=== PATIENT | male | born 1985 | race Caucasian/White ===

== ENCOUNTER 2016-10-18 18:01 | Emergency (ER) | payer SELFPAY ==
[~2016-10-18] VITALS: Ht 172.7 cm; Wt 82.0 kg
[2016-10-18 18:03] VITALS: BP 160/99; PULSE 129; RESP 24; O2SAT 96
== END 2016-10-18 20:30 | disposition left against medical advice (07) ==
LOC: NED 18:01
DX: F99 Mental disorder, not otherwise specified (principal)

== ENCOUNTER 2016-11-11 16:00 | Emergency (ER) | payer OTHER ==
[2016-11-11 16:14] VITALS: BP 132/86; PULSE 115; RESP 18; TEMP 97.6; O2SAT 97
[2016-11-11] MEDS ORDERED: diphenhydrAMINE HCL 50 MG/ML VIAL ONE (16:19)
[2016-11-11] MEDS ORDERED: LORazepam 2 MG/ML VIAL ONE (16:19)
[2016-11-11] MEDS ORDERED: HALOPERIDOL LACTATE 5 MG/ML AMP ONE (16:19)
[2016-11-11] MEDS ORDERED: diphenhydrAMINE HCL 50 MG/ML VIAL IM ONE ×2 (16:30→19:45)
[2016-11-11] MEDS ORDERED: LORazepam 2 MG/ML VIAL IM ONE ×2 (16:30→19:45)
[2016-11-11] MEDS ORDERED: HALOPERIDOL LACTATE 5 MG/ML AMP IM ONE ×2 (16:30→19:45)
--- NOTE | 2016-11-11 17:40 | PD ---
HPI Chief Complaint: Psychiatric Symptoms Time Seen by Provider: 16:18 Travel History International Travel<30 days: No Contact w/Intl Traveler<30days: No Traveled to known affect area: No History of Present Illness HPI 31-year-old male came to the emergency room with history of suicidal ideation and combative and bizarre behavior. He was brought in by the police as a Guardado act. Coincidentally he was seen by me as a trauma alert couple hours ago. Patient was up on the bed trying to paint the bedroom with his when he fell and had head injury. There was IV drug abuse history as well. Patient was seen by the trauma surgeon and cleared by the trauma surgeon. Multiple CAT scans were done. After patient came back from the CAT scan back to the emergency room he was fully awake and wanted to leave. He didn't want his head laceration to be sutured. As per the [place] he ended up going to the [facility] emergency room where it's unclear whether he got any stitches but his mother called PD to let them know that she is concerned that her son has been making suicidal threats. At which point they tried to Guardado act him but he became extremely violent at the scene and started to having his head on the police car which caused a lot of bleeding at the scene. He was brought in extremely combative screaming and spitting at everybody. [facility] Past Medical History Narrative Medical List of his past medical, surgical, social and family history was reviewed from the nursing note. Medical History: Unable to Obtain Arthritis: No Asthma: No Autoimmune Disease: No Blood Disorders: No Bipolar Disorder: Yes Anxiety: No Depression: No Heart Rhythm Problems: No Cancer: No Cardiovascular Problems: No High Cholesterol: No Chemotherapy: No Chest Pain: No Congestive Heart Failure: No COPD: No Cerebrovascular Accident: No Diabetes: No Diminished Hearing: No Endocrine: No Gastrointestinal Disorders: No GERD: Yes Genitourinary: No Headaches: No Hepatitis: Yes (C) Hiatal Hernia: No Hypertension: No Immune Disorder: No Implanted Vascular Access Dvce: No Kidney Stones: No Musculoskeletal: No Neurologic: No Psychiatric: No Reproductive: No Respiratory: No Immunizations Current: Yes Migraines: No Radiation Therapy: No Renal Failure: No Schizophrenia: Yes (schizoaffective disorder) Seizures: Yes (cocoaine induced x1 5yrs ago ) Sickle Cell Disease: No Sleep Apnea: No Thyroid Disease: No Ulcer: No PNEUMOCCOCAL Vaccine (Year): 1 Past Surgical History Surgical History: Unable to Obtain Abdominal Surgery: No AICD: No Arteriovenous Shunt: No Cardiac Surgery: No Ear Surgery: No Endocrine Surgery: Yes Eye Surgery: Yes (rt eye plastic surgery) Genitourinary Surgery: No Gynecologic Surgery: No Insulin Pump: No Joint Replacement: No Neurologic Surgery: No Oral Surgery: No Pacemaker: No Thoracic Surgery: No Other Surgery: Yes (PLASTIC) Social History Alcohol Use: No Tobacco Use: Yes (1-2ppd) Substance Use: Yes (METH) Allergies-Medications (Allergen,Severity, Reaction): Coded Allergies: Vancomycin (Verified Allergy, Mild, Rash, 10/18/16) itching Penicillin (Verified Allergy, Unknown, 10/18/16) Comments List of his allergies reviewed from the nursing note. Reported Meds & Prescriptions Reported Meds & Active Scripts Active Active Prescriptions or Reported Medications Unobtainable Narrative Medication List of his home medications reviewed from the nursing note. Review of Systems Except as stated in HPI: all other systems reviewed are Neg Physical Exam Narrative GENERAL: Awake, combative, dried and oozing blood all over his face from the head wound, for pointed to strain SKIN: Focused skin assessment warm/dry. HEAD: Atraumatic. Normocephalic. EYES: Pupils equal and round. No scleral icterus. No injection or drainage. ENT: No nasal bleeding or discharge. Mucous membranes pink and moist. NECK: Trachea midline. No JVD. CARDIOVASCULAR: Regular rate and rhythm. No murmur appreciated. RESPIRATORY: No accessory muscle use. Clear to auscultation. Breath sounds equal bilaterally. GASTROINTESTINAL: Abdomen soft, non-tender, nondistended. Hepatic and splenic margins not palpable. MUSCULOSKELETAL: No obvious deformities. No clubbing. No cyanosis. No edema. NEUROLOGICAL: Awake and alert. No obvious cranial nerve deficits. Motor grossly within normal limits. Normal speech. PSYCHIATRIC: Appropriate mood and affect; insight and judgment normal. Data Data Last Documented VS Vital Signs Date Time Temp Pulse Resp B/P Pulse Ox O2 Delivery O2 Flow Rate FiO2 11/12/16 10:08 96 16 114/57 97 Room Air 11/11/16 23:02 97.8 Orders Psych Screen (11/11/16 16:18) Haloperidol Inj (Haldol Inj) (11/11/16 16:30) Lorazepam Inj (Ativan Inj) (11/11/16 16:30) Drug Screen, Random Urine (11/11/16 16:18) Alcohol (Ethanol) (11/11/16 16:18) Diphenhydramine Inj (Benadryl Inj) (11/11/16 16:30) Diphenhydramine Inj (Benadryl Inj) (11/11/16 16:19) Haloperidol Inj (Haldol Inj) (11/11/16 16:19) Lorazepam Inj (Ativan Inj) (11/11/16 16:19) Restraints Violent (11/11/16 17:57) Ct Brain W/O Iv Contrast(Rout) (11/11/16 ) Haloperidol Inj (Haldol Inj) (11/11/16 19:45) Lorazepam Inj (Ativan Inj) (11/11/16 19:45) Diphenhydramine Inj (Benadryl Inj) (11/11/16 19:45) Diet Regular Basic (11/12/16 Breakfast) Labs Laboratory Tests Test 11/11/16 20:30 Urine Opiates Screen NEG Urine Barbiturates Screen NEG Urine Amphetamines Screen POS Urine Benzodiazepines Screen POS Urine Cocaine Screen POS Urine Cannabinoids Screen POS MDM Medical Decision Making Medical Screen Exam Complete: Yes Emergency Medical Condition: Yes Medical Record Reviewed: Yes Differential Diagnosis Head injury, substance abuse, alcohol intoxication, psychotic, substance- induced psychosis Narrative Course 6:06 PM patient had to be restrained given his violent attitude and he had to be put on a spit mask since he was spitting bloody saliva at everybody. I needed to chemically restrain him with IM Haldol plus Ativan plus Benadryl. Awaiting for the blood test. Awaiting for the CT scan to be done and resulted. He was already updated on tetanus and had received an Ancef shot last time when he came in as a trauma alert few hours ago. Once he is medically cleared he will be waiting to get psych screen. 7:[address] scan report. Case was signed over to the oncoming ER physician. The PA will repair the facial lacerations. Please refer to her procedure notes. Procedures EKG Prior to Arrival: No Scripts Unable to Obtain Active Prescriptions or Reported Meds Antione Velazquez MD Nov 11, 2016 17:40
[2016-11-11 18:20] VITALS: BP_SYST 106; BP_SYST 131; BP_DIAS 57; BP_DIAS 59; PULSE 72; PULSE 76; RESP 18; O2SAT 100
--- NOTE | 2016-11-11 19:26 | PD ---
Data Data Last Documented VS Vital Signs Date Time Temp Pulse Resp B/P Pulse Ox O2 Delivery O2 Flow Rate FiO2 11/11/16 22:00 93 16 119/64 97 Room Air 11/11/16 16:14 97.6 Orders Psych Screen (11/11/16 16:18) Haloperidol Inj (Haldol Inj) (11/11/16 16:30) Lorazepam Inj (Ativan Inj) (11/11/16 16:30) Drug Screen, Random Urine (11/11/16 16:18) Alcohol (Ethanol) (11/11/16 16:18) Diphenhydramine Inj (Benadryl Inj) (11/11/16 16:30) Diphenhydramine Inj (Benadryl Inj) (11/11/16 16:19) Haloperidol Inj (Haldol Inj) (11/11/16 16:19) Lorazepam Inj (Ativan Inj) (11/11/16 16:19) Restraints Violent (11/11/16 17:57) Ct Brain W/O Iv Contrast(Rout) (11/11/16 ) Haloperidol Inj (Haldol Inj) (11/11/16 19:45) Lorazepam Inj (Ativan Inj) (11/11/16 19:45) Diphenhydramine Inj (Benadryl Inj) (11/11/16 19:45) Labs Laboratory Tests Test 11/11/16 20:30 Urine Opiates Screen NEG Urine Barbiturates Screen NEG Urine Amphetamines Screen POS Urine Benzodiazepines Screen POS Urine Cocaine Screen POS Urine Cannabinoids Screen POS MDM Medical Record Reviewed: Yes Supervised Visit with PETRA: No Narrative Course During the course of the patients emergency department visit, the patients history, examination, and differential diagnosis were reviewed with the patient. The patient had IV access obtained and blood work sent for analysis. The patient's case was checked out to me by Dr. Velazquez. Please see her complete history and physical. The patient was initially provided Ativan 2 mg IM, Benadryl 50 mg IM, and Haldol 5 mg IM. This was ordered by Dr. Velazquez. This was administered a few hours ago. The patient began to become more awake and alert and agitated again requiring a repeat dose of sedation to accomplish his wound repair and CT scan of the brain. The patient was given Haldol 2.5 mg IM, Benadryl 25 mg IM, Ativan 1 mg IM. The patients laboratory studies were reviewed and remarkable for a urine drug screen that is positive for amphetamines, benzodiazepines, cocaine, cannabinoids. Radiology studies were reviewed and remarkable for a CT scan of the brain that shows no acute intracranial abnormality. The patient has mild right soft tissue scalp swelling. The patient has been medically cleared for evaluation by the psychiatric screener under a Guardado act. Diagnosis Primary Impression: Agitation requiring sedation protocol Scripts Unable to Obtain Active Prescriptions or Reported Meds Tran Dorman MD Nov 11, 2016 19:26
--- NOTE | 2016-11-11 21:08 | PD ---
Physical Exam Time Seen by Provider: 21:05 Narrative I was asked to perform laceration repair by Dr. Velazquez. For further details regarding the patient's visit please see the physician's documentation. Data Data Last Documented VS Vital Signs Date Time Temp Pulse Resp B/P Pulse Ox O2 Delivery O2 Flow Rate FiO2 11/11/16 18:20 76 18 106/57 100 Room Air 11/11/16 16:14 97.6 Orders Psych Screen (11/11/16 16:18) Haloperidol Inj (Haldol Inj) (11/11/16 16:30) Lorazepam Inj (Ativan Inj) (11/11/16 16:30) Drug Screen, Random Urine (11/11/16 16:18) Alcohol (Ethanol) (11/11/16 16:18) Diphenhydramine Inj (Benadryl Inj) (11/11/16 16:30) Diphenhydramine Inj (Benadryl Inj) (11/11/16 16:19) Haloperidol Inj (Haldol Inj) (11/11/16 16:19) Lorazepam Inj (Ativan Inj) (11/11/16 16:19) Restraints Violent (11/11/16 17:57) Ct Brain W/O Iv Contrast(Rout) (11/11/16 ) Haloperidol Inj (Haldol Inj) (11/11/16 19:45) Lorazepam Inj (Ativan Inj) (11/11/16 19:45) Diphenhydramine Inj (Benadryl Inj) (11/11/16 19:45) MDM Supervised Visit with PETRA: No Procedures Procedure Narrative LACERATION LOCATION: Right scalp LENGTH: 2.5 cm NUMBER OF STITCHES/SHELTON: 7 [place] REPAIR: The area of the laceration was prepped with Betadine and sterilely draped. The laceration was infiltrated with lidocaine with epinephrine. The wound was copiously irrigated and explored without evidence of foreign body, tendon injury or neurovascular injury. The wound was closed using shelton. This was a single layer repair. A sterile dressing was applied. The patient was advised to keep the dressing clean and dry. Patient tolerated the procedure well. LACERATION LOCATION: Right upper scalp LENGTH: 2 cm NUMBER OF STITCHES/SHELTON: 4 [place] REPAIR: The area of the laceration was prepped with Betadine and sterilely draped. The laceration was infiltrated with lidocaine with epinephrine. The wound was copiously irrigated and explored without evidence of foreign body, tendon injury or neurovascular injury. The wound was closed using shelton. This was a single layer repair. A sterile dressing was applied. The patient was advised to keep the dressing clean and dry. Patient tolerated the procedure well. LACERATION LOCATION: Right upper scalp LENGTH: 1.5 cm NUMBER OF STITCHES/SHELTON: 3 [place] REPAIR: The area of the laceration was prepped with Betadine and sterilely draped. The laceration was infiltrated with lidocaine with epinephrine. The wound was copiously irrigated and explored without evidence of foreign body, tendon injury or neurovascular injury. The wound was closed using shelton. This was a single layer repair. A sterile dressing was applied. The patient was advised to keep the dressing clean and dry. Patient tolerated the procedure well. Scripts Unable to Obtain Active Prescriptions or Reported Meds Laureen Iraheta Nov 11, 2016 21:08
[2016-11-11 21:34] LABS: AMPHETAMINE, URINE POS (NEG); BARBITURATES, URINE NEG (NEG); COCAINE, URINE POS (NEG)
--- NOTE | 2016-11-11 21:34 | RADRPT ---
EXAM DATE/TIME: 11/11/2016 20:28 [place] COMPARISON: No previous studies available for comparison. INDICATIONS : Altered mental status. Hit head. RADIATION DOSE: 56.35 CTDIvol (mGy) MEDICAL HISTORY : Seizures. Gastroesophageal reflux disease. Hepatitis C. SURGICAL HISTORY : None. ENCOUNTER: Initial ACUITY: 1 day PAIN SCALE: 4/10 LOCATION: cranial TECHNIQUE: Multiple contiguous axial images were obtained of the head. Using automated exposure control and adj ustment of the mA and/or kV according to patient size, radiation dose was kept as low as reasonably a chievable to obtain optimal diagnostic quality images. FINDINGS: CEREBRUM: The ventricles are normal. No evidence of midline shift, mass lesion, hemorrhage or acute infarction . No extra-axial fluid collections are seen. POSTERIOR FOSSA: The cerebellum and brainstem are intact. The 4th ventricle is midline. The cerebellopontine angle i s unremarkable. EXTRACRANIAL: . Is mild right scalp soft tissue swelling. A 12 mm right maxillary sinus polyp versus mucous retenti on cyst is present SKULL: The calvaria is intact. No evidence of skull fracture. CONCLUSION: 1. No acute intracranial abnormality is identified. 2. Mild right scalp soft tissue swelling. Cristofer Hannah MD on November 11, 2016 at 21:28 Board Certified Radiologist. This report was verified electronically.
[2016-11-11 22:00] VITALS: BP 119/64; PULSE 93; RESP 16; O2SAT 97
[2016-11-11 23:02] VITALS: BP 133/69; PULSE 78; RESP 18; TEMP 97.8; O2SAT 98
[2016-11-12 01:50] VITALS: BP 107/68; PULSE 80; RESP 16
[2016-11-12 06:05] VITALS: BP 114/56; PULSE 80; RESP 18
[2016-11-12 10:08] VITALS: BP 114/57; PULSE 96; RESP 16; O2SAT 97
--- NOTE | 2016-11-12 10:49 | PD ---
History of Present Illness Chief Complaint: Psychiatric Symptoms Time Seen by Provider: 10:40 Travel History International Travel<30 Days: No Contact w/Intl Traveler<30days: No Known affected area: No Legal Status Legal Status: Guardado Act Guardado Act Signed By: History of Present Illness: This is a 31-year-old male seen earlier in the emergency department with a head injury, who left AMA. Brought back in by police and given sutures. At the time he returned, he also made claims of suicidal ideation, that he wanted the police to kill him and banged his head against the patrol vehicle reopening his wounds. When interviewed by this physician, the patient is seeking opiates. When informed that psychiatry does not prescribe opiate pain medicines, the patient asked for Subutex. When informed psychiatry does not provide Subutex, the patient stated he wanted to leave. He did not claim to be suicidal, homicidal and demonstrated no evidence of psychotic thinking. He does want to get his opiate medications and therefore is requesting his Guardado act be lifted. This physician feels strongly the patient is drug seeking and manipulative. Despite his recent dangerous behavior, it is not appropriate to enable the patient to receive opiates in this manner. It is also not appropriate to admit the patient to psychiatry. In fact, this physician feels it is counter therapeutic to give into this type of manipulation. Therefore, despite the possibility of the patient acting out once again, including self injury, this physician feels he should be discharged. PFSH Past Medical History Medical History: Unable to Obtain Arthritis: No Asthma: No Autoimmune Disease: No Blood Disorders: No Bipolar Disorder: Yes Anxiety: No Depression: No Heart Rhythm Problems: No Cancer: No Cardiovascular Problems: No High Cholesterol: No Chemotherapy: No Chest Pain: No Congestive Heart Failure: No COPD: No Cerebrovascular Accident: No Diabetes: No Diminished Hearing: No Endocrine: No Gastrointestinal Disorders: No GERD: Yes Genitourinary: No Headaches: No Hepatitis: Yes (C) Hiatal Hernia: No Hypertension: No Immune Disorder: No Implanted Vascular Access Dvce: No Kidney Stones: No Musculoskeletal: No Neurologic: No Psychiatric: No Reproductive: No Respiratory: No Immunizations Current: Yes Migraines: No Radiation Therapy: No Renal Failure: No Schizophrenia: Yes (schizoaffective disorder) Seizures: Yes (cocoaine induced x1 5yrs ago ) Sickle Cell Disease: No Sleep Apnea: No Thyroid Disease: No Ulcer: No PNEUMOCCOCAL Vaccine (Year): 1 Past Surgical History Surgical History: Unable to Obtain Abdominal Surgery: No AICD: No Arteriovenous Shunt: No Cardiac Surgery: No Ear Surgery: No Endocrine Surgery: Yes Eye Surgery: Yes (rt eye plastic surgery) Genitourinary Surgery: No Gynecologic Surgery: No Insulin Pump: No Joint Replacement: No Neurologic Surgery: No Oral Surgery: No Pacemaker: No Thoracic Surgery: No Other Surgery: Yes (PLASTIC) Psychiatric History Psychiatric History Hx Psychiatric Treatment: Patient stated that he has been diagnosed with bipolar d/o, schizoaffective d/o and social phobia. Reports previous inpatient and outpatient psychiatric treatment treatment in [place]. He is currently not taking any psychaitric medication. This physician this physician finds no significant objective evidence of bipolar disorder, schizoaffective disorder or social phobia at this time. History of Inpatient Treatment: Yes Guns or firearms in home: No Social History Hx Alcohol Use: No Hx Tobacco Use: Yes (1-2ppd) Hx Substance Use: Yes (METH) Substance Use Type: Alcohol, Marijuana, Nicotine/Cigarettes, Prescription Medications, Benzos (Valium,Xanax), Cocaine, Synth Opiates-Pain Pills, Cough- Cold Pills Hx of Substance Use Treatment: Yes Allergies-Medications (Allergen,Severity, Reaction): Coded Allergies: Vancomycin (Verified Allergy, Mild, Rash, 10/18/16) itching Penicillin (Verified Allergy, Unknown, 10/18/16) Reported Meds & Prescriptions Reported Meds & Active Scripts Active Active Prescriptions or Reported Medications Unobtainable Review of Systems Except as stated in HPI: all other systems reviewed are Neg Neurologic: COMPLAINS OF: Headache Exam Alert: Yes [place]: Person, Place, Date, Situation Mood: Oppositional Affect: Restricted Speech: Clear Eye Contact: Normal Memory Intact: Immediate, Recent, Remote Insight/Judgement Adequate MDM Medical Decision Making Medical Record Reviewed: Yes Assessment/Plan Despite the patient's recent self-inflicted injury to his head, this physician does not feel his behavior is the result of a major mental illness but rather the result of a personality style and drug-seeking behavior. This physician feels it is counter therapeutic to enable this type of behavior, by providing the patient with opiates or a psychiatric hospitalization. Therefore, despite the risks of the patient acting out, his Guardado act is being lifted and he is being discharged. Orders Psych Screen (11/11/16 16:18) Haloperidol Inj (Haldol Inj) (11/11/16 16:30) Lorazepam Inj (Ativan Inj) (11/11/16 16:30) Drug Screen, Random Urine (11/11/16 16:18) Alcohol (Ethanol) (11/11/16 16:18) Diphenhydramine Inj (Benadryl Inj) (11/11/16 16:30) Diphenhydramine Inj (Benadryl Inj) (11/11/16 16:19) Haloperidol Inj (Haldol Inj) (11/11/16 16:19) Lorazepam Inj (Ativan Inj) (11/11/16 16:19) Restraints Violent (11/11/16 17:57) Ct Brain W/O Iv Contrast(Rout) (11/11/16 ) Haloperidol Inj (Haldol Inj) (11/11/16 19:45) Lorazepam Inj (Ativan Inj) (11/11/16 19:45) Diphenhydramine Inj (Benadryl Inj) (11/11/16 19:45) Diet Regular Basic (11/12/16 Breakfast) Results Vital Signs Date Time Temp Pulse Resp B/P Pulse Ox O2 Delivery O2 Flow Rate FiO2 11/12/16 10:08 96 16 114/57 97 Room Air 11/12/16 06:05 80 18 114/56 11/12/16 01:50 80 16 107/68 11/11/16 23:02 97.8 78 18 133/69 98 Room Air 11/11/16 22:00 93 16 119/64 97 Room Air 11/11/16 18:20 76 18 106/57 100 Room Air 11/11/16 16:14 97.6 115 18 132/86 97 Laboratory Tests Test 11/11/16 20:30 Urine Opiates Screen NEG Urine Barbiturates Screen NEG Urine Amphetamines Screen POS Urine Benzodiazepines Screen POS Urine Cocaine Screen POS Urine Cannabinoids Screen POS Diagnosis Primary Impression: Adjustment disorder with mixed disturbance of emotions and conduct Additional Impressions: Opiate abuse, continuous [place] Prescriptions Unable to Obtain Active Prescriptions or Reported Meds Problem Qualifiers Alec Ceja MD Nov 12, 2016 10:48
== END 2016-11-12 11:00 | disposition home or self-care (01) ==
LOC: NEPE 16:00 → NEPJ 11-12 11:00
DX: S01.01XA Laceration without foreign body of scalp, initial encounter (principal); F43.25 Adjustment disorder with mixed disturbance of emotions and conduct; F11.10 Opioid abuse, uncomplicated; F31.9 Bipolar disorder, unspecified; F25.9 Schizoaffective disorder, unspecified; F40.10 Social phobia, unspecified; K21.9 Gastro-esophageal reflux disease without esophagitis; W06.XXXA Fall from bed, initial encounter; Z76.5 Malingerer [conscious simulation]
CPT/HCPCS: 12002; 70450; 80307; 96372; 99285; J1200; J1630; J2060